=== PATIENT | female | born 1945 | race Caucasian/White ===

== ENCOUNTER → 2024-11-01 08:06 | Outpatient (REF) | payer MEDICARE, SELFPAY | LOC: RAD 08:06 | PROVIDERS: ATTENDING PHYSICIAN Urology; FAMILY PHYSICIAN Family Medicine | DX: R31.0 Gross hematuria (principal); C67.9 Malignant neoplasm of bladder, unspecified | CPT/HCPCS: 74178; Q9967 ==

== ENCOUNTER → 2025-06-04 16:12 | Outpatient (REF) | payer MEDICARE, SELFPAY | LOC: RAD 16:12 | PROVIDERS: ATTENDING PHYSICIAN Urology; FAMILY PHYSICIAN Family Medicine | DX: R31.0 Gross hematuria (principal) | CPT/HCPCS: 74178; Q9967 ==